=== PATIENT | female | born 1990 | race Hispanic/Latino ===

== ENCOUNTER 2016-10-04 02:20 | Emergency (ER) | payer BC, OTHER ==
[2016-10-04 02:34] VITALS: BMI 23.4
--- NOTE | 2016-10-04 02:46 | ED PDOC ---
HPI: Female Pain Time Seen by Provider: 10/04/16 02:31 Chief Complaint (Nursing): Female Genitourinary Chief Complaint (Provider): dysuria History Per: Patient History/Exam Limitations: no limitations Onset/Duration Of Symptoms: Days (2) Current Symptoms Are (Timing): Still Present Quality Of Discomfort: Burning, "Pain" Associated Symptoms: Urinary Symptoms Additional History Per: Patient Additional Complaint(s): 26 y/o female presents with dysuria x 2 days. Associated suprapubic pain, increased urine frequency/urgency. Patient notes blood in urine tonight, which prompted ED visit. Denies fever, nausea/vomiting, changes in bowel movements, back pain, vaginal bleeding/discharge. Past Medical History Reviewed: Historical Data, Nursing Documentation, Vital Signs Vital Signs: Last Vital Signs Temp 98.1 F 10/04/16 02:34 Pulse 90 10/04/16 02:34 Resp 18 10/04/16 02:34 BP 115/70 10/04/16 02:34 Pulse Ox 97 10/04/16 02:34 - Medical History PMH: No Chronic Diseases - Family History Family History: States: Unknown Family Hx - Living Arrangements Living Arrangements: Alone - Home Medications Home Medications: Ambulatory Orders Medication Instructions Recorded Ciprofloxacin HCl [Cipro] 500 mg PO BID #13 tab 10/04/16 - Allergies Allergies/Adverse Reactions: Allergies Allergy/AdvReac Type Severity Reaction Status Date / Time No Known Allergies Allergy Verified 10/04/16 02:33 Review of Systems ROS Statement: Except As Marked, All Systems Reviewed And Found Negative Genitourinary Female: Positive for: Dysuria, Frequency, Hematuria Physical Exam - Reviewed Nursing Documentation Reviewed: Yes Vital Signs Reviewed: Yes - Physical Exam Appears: Positive for: Well, Non-toxic, Uncomfortable Cardiovascular/Chest: Positive for: Regular Rate, Rhythm Respiratory: Positive for: Normal Breath Sounds Gastrointestinal/Abdominal: Positive for: Bowel Sounds, Soft, Tenderness ( suprapubic) Extremity: Positive for: Normal ROM Neurologic/Psych: Positive for: Alert, Oriented - ECG O2 Sat by Pulse Oximetry: 97 - Progress ED Course And Treament: urine, pyridium PO, ibuprofen PO Patient educated on findings, discharged with rx Cipro (dose given in ED) Follow up PMD 2-3 days. Return to ED for worsening/concerning symptoms. Disposition - Clinical Impression Clinical Impression: Urinary tract infection - Patient ED Disposition Is Patient to be Admitted: No Counseled Patient/Family Regarding: Studies Performed, Diagnosis, Need For Followup, Rx Given - Disposition Disposition: Routine/Home Disposition Time: 02:56 Condition: IMPROVED Prescriptions: Ciprofloxacin HCl [Cipro] 500 mg PO BID #13 tab Instructions: Urinary Tract Infection in Women (ED)
[2016-10-04 03:03] VITALS: BP 115/70; PULSE 90; RESP 18; TEMP 98.1; O2SAT 97
== END 2016-10-04 03:32 | disposition home or self-care (01) ==
LOC: H.ER 02:20
DX: N39.0 Urinary tract infection, site not specified (principal)